=== PATIENT | female | born 1985 | race Caucasian/White ===

== ENCOUNTER 2016-12-04 10:07 | Inpatient (IN) | payer MEDICAID ==
[~2016-12-04] VITALS: Ht 165.1 cm; Wt 99.8 kg
[~2016-12-04 10:07] MED LIST: PRENATAL PLUS I1 TAB PO
[2016-12-05] MEDS ORDERED: FERROUS SULFAT325 M1 PO (00:15)
[2016-12-06] MEDS ORDERED: MOTRIN800 MG PO (08:16)
[2016-12-06] MEDS ORDERED: COLACE100 MG PO (08:17)
== END 2016-12-06 11:45 | disposition short-term general hospital (02) | DRG 767 ==
LOC: LDRIP 10:07
PROVIDERS: ADMIT Family Medicine
PROC: 10D17ZZ Extraction of Products of Conception, Retained, Via Natural or Artificial Opening (ICD-10-PCS; principal; 2016-12-05)
PROC: 10E0XZZ Delivery of Products of Conception, External Approach (ICD-10-PCS; principal; 2016-12-05)
PROC: 3E0P7GC Introduction of Other Therapeutic Substance into Female Reproductive, Via Natural or Artificial Opening (ICD-10-PCS; principal; 2016-12-05)
PROC: 10907ZC Drainage of Amniotic Fluid, Therapeutic from Products of Conception, Via Natural or Artificial Opening (ICD-10-PCS; principal; 2016-12-05)
DX: O24.429 Gestational diabetes mellitus in childbirth, unspecified control (principal); O36.63X0 Maternal care for excessive fetal growth, third trimester, not applicable or unspecified; Z3A.39 39 weeks gestation of pregnancy; Z37.0 Single live birth; O73.1 Retained portions of placenta and membranes, without hemorrhage
CPT/HCPCS: A9150; J2300; J2310; J2370; J2590; J2765; J2795; J3010

== ENCOUNTER 2017-03-26 20:41 | Emergency (ER) | payer MEDICAID ==
[~2017-03-26] VITALS: Ht 165.1 cm; Wt 90.3 kg
[~2017-03-26 20:41] MED LIST changes: +COLACE100 MG PO; +FERROUS SULFAT325 M1 PO; +MOTRIN800 MG PO
== END 2017-03-26 23:20 | disposition short-term general hospital (02) ==
LOC: ER 20:41
DX: O26.851 Spotting complicating pregnancy, first trimester (principal); Z3A.01 Less than 8 weeks gestation of pregnancy; Z88.8 Allergy status to other drugs, medicaments and biological substances

== ENCOUNTER 2017-03-28 18:29 | Emergency (ER) | payer MEDICAID ==
[~2017-03-28] VITALS: Ht 165.1 cm; Wt 90.7 kg
[2017-03-28] MEDS ORDERED: PRENATAL PLUS I1 TAB PO (21:13)
[2017-03-28] MEDS ORDERED: CLEOCIN150 MG PO (21:14)
== END 2017-03-28 20:16 | disposition short-term general hospital (02) ==
LOC: ER 18:29
DX: O26.859 Spotting complicating pregnancy, unspecified trimester (principal); Z88.8 Allergy status to other drugs, medicaments and biological substances